=== PATIENT | female | born 1990 | race Caucasian/White ===

== ENCOUNTER 2021-11-21 01:21 | Day surgery (SDC) | payer OTHER, SELFPAY ==
[2021-11-14 12:44] VITALS: BMI 43.9
--- NOTE | 2021-11-14 12:59 | PC.NURSE ---
Report to the Outpatient Waiting Room, entrance under the green pavilion located off [facility], at time 0930 on date 11/21/21. OR Time: 1130. - You and your visitor will be asked a series of questions to screen for COVID 19 for your protection. - A mask is required within the hospital. - Only one visitor is allowed at this time. Patient visitors will be guided where to wait when not with patient. Preoperative COVID Testing Requirements: No COVID Test needed if: (proof is required; if not received patient will have Rapid Test prior to entry) - Patient has received COVID Vaccine at least 14 days prior to procedure date or - Patient has positive COVID test result within last 90 days of surgery date. COVID Test needed if above criteria is not met If not COVID vaccinated a COVID test must be conducted within 72 hours of surgery and patient is asked to isolate self from time of testing until procedure. You will go to the [facility] for your COVID testing. The [facility] is located at the corner of [address] [facility]. You will only be called if COVID results are positive and your surgeon may reschedule your elective surgery date. Patients may have clear liquids (water, carbonated beverages, clear teas, apple juice) until 3 hours prior to surgery with a maximum of 20 ounces. - No food from midnight until time of surgery - Infants may have breast milk until 4 hours before surgery, infant formula 6 hours prior to surgery. - Children will be allowed to drink immediately following surgery. If applicable, please bring a bottle or sippy cup to assist with drinking. Juice, water, soda, and popsicles are readily available. For infants on formula, please bring formula the day of surgery. Pacifiers are allowed. Take the following medications with a SIP of water the morning of surgery: GABAPENTIN Medications to discontinue per physician: N/A Date to take last dose: N/A Please no make-up, nail maltese, hairspray, perfume, deodorant, or body powder the day of surgery. No jewelry (including any body piercings) or valuables the day of surgery, leave them at home. Please take a shower or bath the night before, or the morning of, surgery with an antibacterial soap. Wear comfortable, loose fitting clothing. Children are encouraged to wear pajamas. - Jewelry must be removed prior to entering the operating room. Rings and piercings that are not removed may be cut off. - The hospital will not accept responsibility for valuables. - Please leave all valuables, including medications, at home the day of surgery. If you are going home after surgery, a licensed patrol driver must drive you home. - NO public transportation without another adult. - We recommend that an adult stay with you for 24 hours following discharge. - We also recommend that you do not drive, make important decision, drink alcoholic beverages, or take any drugs that were not prescribed by your health care provider for at least 24 hours after your discharge time. For Pediatric surgeries, we recommend two adults accompany the child home (only one inside the building at this time). Follow any additional instructions given to you from your surgeon. Telephone instructions given to RAJI FRENCH and asked if any additional questions and then verbalized understanding. Patient advised to call surgeon office or pre surgery nurse liaison [phone] if any additional questions.
[2021-11-21] VITALS (11 sets, daily range): BP systolic 93–120; BP diastolic 54–84; PULSE 62–89; RESP 14–17; TEMP 36–36.5; O2SAT 93–100
[2021-11-21] MEDS: LACTATED RINGERS 1,000 ML 30 ML IV CONT ×2 (10:10→13:28)
[2021-11-21] MEDS: ACETAMINOPHEN 500 MG TABLET 1000 MG PO (10:20)
[2021-11-21] MEDS: GABAPENTIN 300 MG CAPSULE PO (10:20)
[2021-11-21 10:25] LABS: Hematocrit 46.1 % (37.0-47.0); Hemoglobin 15.1 g/dL (12.0-15.0); Mean Corpuscular HGB Conc 32.8 g/dl (32-36); Mean Corpuscular Hemoglobin 30.4 pg (26-34); Mean Corpuscular Volume 92.8 fl (80-100); Mean Platelet Volume 10.1 fl (7.4-10.4); Platelet Count Result 331 k/mm3 (150-375); Red Blood Count 4.97 M/mm3 (4.2-5.4); Red Cell Distribution Width 14.3 % (11.5-14.5)
--- NOTE | 2021-11-21 10:40 | P.PNAN_ITS ---
Anes - Initial Pre Proc Eval Procedure: Operation Date: 11/21/21 11:30 Proposed Procedures p Diagnostic Laparoscopy, Bilateral Salpingectomy, Bilateral Ovarian Drilling, Possible Resection of Endometriosis - Cortney Walter DO Date/Time: 11/21/21 10:40 Surgeon: Cortney Walter DO Pre Op Diagnosis: pelvic pain, polycystic ovarian syndrome Patient Data Age: 31 Gender: F Height: 1.57 m Weight: 106.3 kg Last Vital Signs Temp 36.0 C L 11/21/21 10:26 Pulse 72 11/21/21 10:26 BP 120/71 11/21/21 10:26 Pulse Ox 100 11/21/21 10:26 Allergies Allergy/AdvReac Type Severity Reaction Status Date / Time amoxicillin Allergy Intermediate Rash and Verified 11/21/21 09:52 vomiting Home Medications Medication Instructions Recorded Confirmed Type gabapentin 300 mg PO DAILY 11/14/21 11/21/21 History metformin 500 mg PO DAILY 11/14/21 11/21/21 History Laboratory Tests 11/21/21 10:05 WBC 9.0 K/mm3 K/mm3 (4.5-10.0) RBC 4.97 M/mm3 M/mm3 (4.2-5.4) Hgb 15.1 g/dL H g/dL (12.0-15.0) Hct 46.1 % % (37.0-47.0) MCV 92.8 fl fl (80-100) MCH 30.4 pg pg (26-34) MCHC 32.8 g/dl g/dl (32-36) RDW 14.3 % % (11.5-14.5) Plt Count 331 k/mm3 k/mm3 (150-375) MPV 10.1 fl fl (7.4-10.4) Patient hx anesthesia problems: none Family hx anesthesia problems: none Results Review: All pre-operative results and documents have been reviewed as part of the pre-operative evaluation. [facility] Past Medical History Medical History (Updated 11/21/21 @ 08:25 by Matt Hackett DO) PCOS (polycystic ovarian syndrome) Surgical History Surgical History (Updated 11/21/21 @ 08:25 by Matt Hackett DO) History of appendectomy History of cholecystectomy Social History Social History Smoking packs per day: 0.5 Smoking cigarettes per day: 10.0 Years smoked: 20 Smoking pack-years: 10.00 Smoking status: Current every day smoker Tobacco type: cigarettes Alcohol intake: never Substance use: never Substance use type: does not use Living arrangements: with family Spiritual care concerns: No Anes - Eval Final PreProcedure Day of Procedure 11/21/21 10:40 Patient weight: morbidly obese Heart: regular rate and rhythm Lungs: clear to auscultation and normal air movement Airway: Mallampati scale class II Neurological: alert and oriented Last oral intake: >/= 8 hours ASA classification: III Emergent: no Anesthetic plan: proceed Anesthesia type and monitoring: general ETT and standard monitoring Results Review: All pre-operative results and documents have been reviewed as part of the pre-operative evaluation. Informed Consent: The patient's anesthetic plan and its attendant risks and be nefits were discussed with the patient/family/POA. Questions were solicited and answers provided to the satisfaction of the patient/family/POA.
--- NOTE | 2021-11-21 11:18 | P.HP_ITS ---
H&P: HPI History of Present Illness Date/Time: 11/21/21 11:18 Chief Complaint: I'm here for my surgery Patient presents desiring permanent sterilization Review of Systems Review of Systems: All systems reviewed & are unremarkable except as noted in HPI and below [facility] Past Medical History Medical History (Updated 11/21/21 @ 11:20 by Cortney Walter DO) PCOS (polycystic ovarian syndrome) Surgical History Surgical History (Updated 11/21/21 @ 08:25 by Matt Hackett DO) History of appendectomy History of cholecystectomy Social History Social History Smoking packs per day: 0.5 Smoking cigarettes per day: 10.0 Years smoked: 20 Smoking pack-years: 10.00 Smoking status: Current every day smoker Tobacco type: cigarettes Alcohol intake: never Substance use: never Substance use type: does not use Living arrangements: with family Spiritual care concerns: No Meds Home Medications and Allergies Home Medications Medication Instructions Recorded Confirmed Type gabapentin 300 mg PO DAILY 11/14/21 11/21/21 History metformin 500 mg PO DAILY 11/14/21 11/21/21 History Allergies Allergy/AdvReac Type Severity Reaction Status Date / Time amoxicillin Allergy Intermediate Rash and Verified 11/21/21 09:52 vomiting Vital Signs Vital Signs - 24 hr 11/21/21 10:26 Temperature 36.0 C L Pulse Rate 72 Blood Pressure 120/71 Pulse Oximetry 100 Exam Const: General: comfortable and no acute distress Eyes: General: appearance normal, both eyes and all related structures Resp: Auscultation: clear to auscultation bilaterally Cardio: Rate: regular rate Rhythm: regular rhythm GI: GI Palp: Yes Soft to palpation Percussion: Yes normal to percussion Auscultation: normal bowel sounds Skin: General skin exam: normal color Neuro: General: gait normal Speech: normal speech Motor exam (neuro): Abnormal motor strength present Extrem: General: normal to inspection Psych: Mental Status: mental status grossly normal Affect: normal affect H&P: Results Labs Labs: Short CBC 11/21/21 Range/Units 10:05 WBC 9.0 (4.5-10.0) K/mm3 Hgb 15.1 H (12.0-15.0) g/dL Hct 46.1 (37.0-47.0) % Plt Count 331 (150-375) k/mm3 Assessment and Plan Assessment and plan (1) Sterilization: Code(s): Z30.2 - Encounter for sterilization Status: Acute (2) Pelvic pain in female: Code(s): R10.2 - Pelvic and perineal pain Status: Acute Additional Plan Diagnostic laparoscopy, bilateral salpingectomy, bilateral ovarian drilling, possible resection of endometriosis
--- NOTE | 2021-11-21 11:21 | WPDHPUPDATE1 ---
History and Physical Update Update Date/Time: 11/21/21 11:21 History and Physical has been reviewed, including an updated exam of the patient. There are NO changes in the patient's condition. Risks, benefits, and alternatives have been discussed and questions answered. Patient agrees to proceed with procedure.
[2021-11-21] MEDS: BUPIVACAINE/EPINEPHRINE 0.25% 10 ML VIAL INFILTRATE (12:23)
--- NOTE | 2021-11-21 13:18 | W.PM.PROC2 ---
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 The cervical os was somewhat scarred and only allowed entry to 6 cm. Within the abdomen, nearly the entire omentum was adhered to the anterior abdominal wall below the umbilucus down the midline and covering the LLQ. There was a large bowel epiploica adhered to the cornua at the uteroovarian junction. The right tube was mildly adherent to the ovary and there were two small cigarette style implants just superior to the right psoas. Both ovaries were polycystic in appearance. There were no implants on the bladder flap but it was densely adherent to the lower uterine segment and it appeared the uterine manipulator was not able to pass beyond the scar. The left tube was dilated and there was an endometrioma adhering the tube to the ovary at the distal end. The posterior cul-de-sac was free and there was no evidence of bowel involvement. There were scattered cigarette burn style endometriosis lesions along the pelvic sidewall, above the ureter. These were superficial. SHOULD THE PATIENT REQUIRE A HYSTERECTOMY IN THE FUTURE, I WOULD STRONGLY ADVISE A ROBOTIC APPROACH THE RIGHT ADNEXA IS CLOSELY ADHERENT TO THE SIDEWALL WITH OBLITERATION OF THE BROAD LIGAMENT. I WOULD ALSO SUGGEST PLACING THE UTERINE MANIPULATOR EITHER WHILE WATCHING WITH THE LAPAROSCOPE OR PEFORMING A HYSTEROSCOPY FIRST DUE TO THE ADHERENT NATURE OF THE BLADDER TO THE LOWER UTERINE SEGMENT. Description of Procedure The patient was taken to the operating room where she was placed under general anesthesia. She was prepped and draped in the normal, sterile fashion in dorsal lithotomy position. No preop antibiotics were indicated. A timeout was performed. A mireles catheter was placed. The cervix was visualized with a speculum and grasped with a tenaculum. The uterus only sounded to 6 cm. A uterine manipulator was placed. Gloves were changed and attention then turned to the abdomen. Two penetrating towel clamps were used to grasp the skin at the umbilicus and the skin was injected. A small incision was made and a Veress needle was introduced. A saline water drop test was performed to confirm intraperitoneal placement. The filling pressure was noted to be too high so the Veress was removed and insertion was again attempted but failed. I then opted for a direct entry approach and a 5mm OptiView trocar was placed over the camera. A long trocar was required. We were able to access the abdomen but the trocar was surrounded by omental adhesions so I opted for a safer Palm'ers point insertion. The Mayfield's point area was identified, injected and incised. Direct entry with a 5mm trocar was inserted and was successful. The abdomen was brought up to a filling pressure of 15 mm Hg. Survey of the abdomen revealed nearly the entire omentum scarred up to the anterior abdominal wall. The omentum was free of bowel and had been bloodied from attempted trocar insertion but there was no active bleeding noted. Now that the area of umbilical trocar insertion was noted to be between two adhesions and was clear, the umbilical trocar was inserted under direct visualization. The adhesions were taken down using blunt and sharp dissection with the Ligasure. Once the abdomen was clear and the omentum and abdominal wall hemostatic from the adhesiolysis, additional trocar sites in the right and left lower quadrants were identified, injected, incised and 5 mm trocars introdu
[2021-11-21] MEDS: fentaNYL CITRATE INJ (*CRX) 100 MCG/2 ML VIAL 25 MCG IV PUSH ×6 (14:01→14:52)
--- NOTE | 2021-11-21 14:53 | SUR.PHASEI ---
PT RESTING QUIETLY. SAO2 DROPS TO 89% BRIEFLY, ENCOURAGED SLOW DEEP BREATHS.
--- NOTE | 2021-11-21 15:08 | SUR.PHASEI ---
PT AWAKE, RESTING QUIETLY. STATES PAIN 5/10 AND TOLERABLE.
[2021-11-21] MEDS: oxyCODONE HCL (*CRX) 5 MG TAB IR PO (15:36)
== END 2021-11-21 16:18 | disposition home or self-care (01) ==
PROVIDERS: PCP General Practice; Visit Provider Obstetrics & Gynecology Gynecologic Oncology
PROC: (CPT 49320; principal; 2021-11-21 11:30)
DX: R10.2 Pelvic and perineal pain (principal); E28.2 Polycystic ovarian syndrome; N73.6 Female pelvic peritoneal adhesions (postinfective); N80.3 Endometriosis of pelvic peritoneum; N80.1 Endometriosis of ovary; N80.2 Endometriosis of fallopian tube; Z30.2 Encounter for sterilization; N83.8 Other noninflammatory disorders of ovary, fallopian tube and broad ligament; F17.210 Nicotine dependence, cigarettes, uncomplicated; E66.01 Morbid (severe) obesity due to excess calories; Z68.41 Body mass index [BMI] 40.0-44.9, adult
CPT/HCPCS: 58661; 58662; 58999; 36415; 85027; 86850; 86900; 86901; 88302; A9270; J1100; J2250; J2405; J2704; J2710; J3010; J7030; J7120